=== PATIENT | male | born 1990 | race Caucasian/White ===

== ENCOUNTER 2024-09-30 02:37 | Emergency (ER) | payer MEDICARE, OTHER ==
[~2024-09-30] VITALS: Ht 182.9 cm; Wt 86.0 kg
[2024-09-30 02:47] VITALS: BP 155/95; PULSE 93; RESP 18; TEMP 36.9; O2SAT 98
[2024-09-30 04:11] VITALS: TEMP 98.5
[2024-09-30] MEDS: ACETAMINOPHEN 325MG TABLET PO ONE (04:11)
[2024-09-30] MEDS ORDERED: BACL-141 MT (05:46)
[2024-09-30] MEDS ORDERED: IBUP-2029 MT (05:46)
== END 2024-09-30 06:25 | disposition home or self-care (01) ==
LOC: ER 02:37
DX: S00.83XA Contusion of other part of head, initial encounter (principal); M25.532 Pain in left wrist; M25.561 Pain in right knee; F84.0 Autistic disorder; Z98.890 Other specified postprocedural states; Y08.89XA Assault by other specified means, initial encounter; Y93.89 Activity, other specified; Y92.89 Other specified places as the place of occurrence of the external cause; Y99.8 Other external cause status
CPT/HCPCS: 70486; 73030; 73110; 73130; 73560; 99284

== ENCOUNTER 2024-12-12 17:45 | Emergency (ER) | payer MEDICARE, OTHER ==
[~2024-12-12] VITALS: Ht 193 cm; Wt 79.4 kg
[~2024-12-12 17:45] MED LIST: BACL-141 MT; IBUP-1455 MT
[2024-12-12 17:47] VITALS: O2SAT 98
[2024-12-12 18:49] LABS: HEMATOCRIT. 37.8 % (42.0-52.0); HEMOGLOBIN. 12.5 g/dL (14.0-18.0); MEAN PLATELET VOLUME 8.6 fl (7.4-10.4); PLATELET 290 x1000/uL (130-400); RED BLOOD CELL COUNT 4.08 mill/uL (4.7-6.1); RED CELL DISTRIBUTION WIDTH 13.5 % (11.6-14.6)
[2024-12-12 19:03] LABS: CREATININE 0.8 mg/dL (0.6-1.3)
[2024-12-12 19:04] LABS: BAND% 1.0 % (1.0-6.0); EOSINOPHILS % MANUAL 2.0 % (0.0-5.0); LYMPHOCYTES % MANUAL 6.0 % (20.0-50.0); MONOCYTES % MANUAL 8.0 % (2.0-8.0); NEUTROPHILS % MANUAL 83.0 % (45.0-75.0); PLATELET ESTIMATE NORMAL; UREA NITROGEN BLOOD 14 mg/dL (9-23)
[2024-12-12 19:05] LABS: ASPARTATE AMINOTRANSFERASE 12 IU/L (<34)
[2024-12-12 19:06] LABS: BILIRUBIN DIRECT 0.1 mg/dL (<=3.0); BILIRUBIN TOTAL 0.3 mg/dL (0.1-1.0); PROTEIN TOTAL 6.1 g/dL (6.0-8.3)
[2024-12-12 19:44] LABS: CLARITY URINE CLEAR (CLEAR); COLOR URINE DARK YELLOW (YELLOW); GLUCOSE URINE NEGATIVE (NEGATIVE); KETONES URINE TRACE (NEGATIVE); LEUKOCYTE ESTERASE URINE TRACE (NEGATIVE); NITRITE URINE POSITIVE (NEGATIVE); OCCULT BLOOD URINE NEGATIVE (NEGATIVE); PH URINE 5.5 (4.5-8.0); PROTEIN URINE 2+ (NEGATIVE); SPECIFIC GRAVITY URINE 1.029 (1.005-1.030); UROBILINOGEN URINE 1.0 E.U./dL (0.2-1.0)
[2024-12-12] MEDS ORDERED: NALO4SPR BOTHNSTRLS (19:44)
[2024-12-12] MEDS ORDERED: CEPH500C2 MT (19:44)
[2024-12-12 19:50] LABS: BACTERIA URINE TRACE; RBC URINE NONE SEEN /hpf (0-2); SQUAMOUS EPITHELIAL CELL URINE RARE /lpf (RARE/1+)
[2024-12-12 19:55] LABS: *AMPHETAMINES SCREEN URINE NEGATIVE (NEGATIVE); *BARBITURATES SCREEN URINE NEGATIVE (NEGATIVE); *BENZODIAZEPINES SCREEN URINE NEGATIVE (NEGATIVE); *COCAINE SCREEN URINE PRESUMPTIVE POSITIVE (NEGATIVE); CANNABINOID URINE SCREEN PRESUMPTIVE POSITIVE (NEGATIVE); METHADONE URINE SCREEN NEGATIVE (NEGATIVE); OPIATES URINE SCREEN NEGATIVE (NEGATIVE); PHENCYCLIDINE URINE SCREEN NEGATIVE (NEGATIVE)
[2024-12-12 19:56] LABS: ECSTASY MDMA SCREEN URINE CONF.TEST INDICATED (NEGATIVE)
[2024-12-12 20:10] VITALS: BP 136/80; PULSE 75; RESP 15; TEMP 36.9; O2SAT 100
[2024-12-12] MEDS: CEPHALEXIN 250MG CAPSULE PO ONE (20:15)
== END 2024-12-12 20:20 | disposition home or self-care (01) ==
LOC: ER 17:45
DX: T41.291A Poisoning by other general anesthetics, accidental (unintentional), initial encounter (principal); Z79.899 Other long term (current) drug therapy; Y92.89 Other specified places as the place of occurrence of the external cause
CPT/HCPCS: 36415; 71045; 80048; 80076; 80305; 80307; 80320; 80329; 81003; 82962; 83735; 85025; 93005; 99285; G0480